=== PATIENT | female | born 1995 | race Caucasian/White ===

== ENCOUNTER 2020-10-29 16:01 | Inpatient (IN) | payer MEDICAID ==
[~2020-10-29] VITALS: Ht 162.6 cm; Wt 67.0 kg
[2020-10-29] MEDS ORDERED: LURA20TA PO (18:33)
[2020-10-29] MEDS ORDERED: GABA-1181 PO (18:33)
[2020-10-29] MEDS ORDERED: LISI-894 PO (18:33)
[2020-10-29] MEDS ORDERED: DULO30CA96 PO (18:33)
[2020-10-29] MEDS ORDERED: NALT50TA6 PO (18:33)
[2020-10-29] MEDS ORDERED: QUET200T PO (18:33)
[2020-10-29] MEDS ORDERED: OXCA300T57 PO (18:33)
[2020-10-29] MEDS ORDERED: CLON0.1T2 PO (18:34)
[2020-10-29] MEDS ORDERED: OLAN10TA6 PO (18:35)
[2020-10-29] MEDS ORDERED: MAGNESIUM HYDROXIDE SUSPENSION 30 ML UDCUP PO PRN (19:00)
[2020-10-29] MEDS ORDERED: HydrOXYzine PAMOATE 50 MG CAPSULE PO PRN (19:00)
[2020-10-29] MEDS ORDERED: MAG HYDROX/AL HYDROX/SIMETH ES 30 ML SUSPENSION UDCUP PO PRN (19:00)
[2020-10-29] MEDS ORDERED: ZOLPIDEM TARTRATE 10 MG TABLET PO PRN (19:00)
[2020-10-29] MEDS ORDERED: PROMETHAZINE HCL 25 MG TABLET PO PRN (19:00)
[2020-10-29] MEDS ORDERED: LOPERAMIDE HCL 2 MG CAPSULE PO PRN (19:00)
[2020-10-29] MEDS ORDERED: OLANZapine 5 MG RAPDIS TABLET PO PRN (19:00)
[2020-10-29] MEDS ORDERED: ACETAMINOPHEN 325 MG TABLET PO PRN (19:00)
[2020-10-29] MEDS ORDERED: GuaiFENesin/D-METHORPHAN [SUGAR-FREE] 200-20MG/10 ML SYRUP UDCUP PO PRN (19:00)
[2020-10-29] MEDS ORDERED: TUBERCULIN, PURIFIED PROTEIN DERIVATIVE 5 TU/0.1 ML SYRINGE ID ONE (19:00)
[2020-10-29] MEDS: THIAMINE 100 MG TABLET PO SCH (20:17)
[2020-10-29] MEDS ORDERED: PNEUMOCOCCAL VACCINE POLYVALENT 0.5 ML VIAL [PPSV23] IM ONE (20:45)
[2020-10-29] MEDS ORDERED: INFLUENZA VIRUS VACCINE QVS 2020-21 (6MO+)/PF 60 MCG/0.5 ML SYRINGE IM ONE (20:45)
[2020-10-29 20:54] VITALS: BP 129/79
[2020-10-29] MEDS: MELATONIN 5 MG TABLET PO SCH (20:58)
[2020-10-29] MEDS ORDERED: OLANZapine 5 MG RAPDIS TABLET PO SCH (21:00)
[2020-10-30 04:34] VITALS: BP 122/72
[2020-10-30 08:09] LABS: BASOPHILS % (AUTO) 0.6 % (0.0-2.0); EOSINOPHILS % (AUTO) 1.5 % (1.0-6.0); HEMATOCRIT 32.1 % (36-46); LYMPHOCYTES # (AUTO) 2.8 K/uL (1.0-4.8); LYMPHOCYTES % (AUTO) 39.8 % (22.0-44.0); MEAN CORPUSCULAR HEMOGLOBIN 30.3 pg (26.0-34.0); MEAN CORPUSCULAR HGB CONC 34.3 G/dL (31.0-37.0); MEAN CORPUSCULAR VOLUME 88 fL (80-100); MONOCYTES # (AUTO) 0.5 K/uL (0.1-1.0); MONOCYTES % (AUTO) 7.7 % (2.0-9.0); NEUTROPHILS # (AUTO) 3.5 K/uL (1.8-7.7); NEUTROPHILS % (AUTO) 50.4 % (40.0-70.0); PLATELET COUNT (AUTO) 324 K/uL (150-450); RED BLOOD CELL COUNT(AUTO) 3.63 MIL/uL (4.00-5.20); RED CELL DISTRIBUTION WIDTH 14.4 % (11.5-14.5)
[2020-10-30 08:19] VITALS: BP 130/75
[2020-10-30] MEDS: FOLIC ACID 1 MG TABLET PO SCH (08:44)
[2020-10-30] MEDS: THIAMINE 100 MG TABLET PO SCH ×2 (08:44→16:58)
[2020-10-30] MEDS: NALTREXONE HCL 50 MG TABLET PO SCH (08:44)
[2020-10-30] MEDS: OMEGA-3/DHA/EPA/FISH OIL 1,000 MG CAPSULE PO SCH (08:44)
[2020-10-30] MEDS: MULTIVITAMINS WITH MINERALS, THERAPEUTIC TABLET PO SCH (08:44)
[2020-10-30 08:49] LABS: ALANINE AMINOTRANSFERASE 21 U/L (12-78); ALBUMIN 3.4 g/dL (3.4-5.0); ALKALINE PHOSPHATASE 91 U/L (46-116); ANION GAP 9 mmol/L (8-16); ASPARTATE AMINOTRANSFERASE 18 U/L (15-37); BILIRUBIN,TOTAL 0.1 mg/dL (0.1-1.0); CALCIUM, TOTAL 8.9 mg/dL (8.8-10.5); CARBON DIOXIDE 27 mmol/L (22-29); CHLORIDE 107 mmol/L (98-107); CHOL/HDL RATIO 3.5 (3.9-5.7); CHOLESTEROL 156 mg/dL (131-200); CREATININE 0.77 mg/dL (0.60-1.30); FREE T4 (FREE THYROXINE) 1.05 ng/dL (0.76-1.46); GLOMERULAR FILTR. RATE CALC > 60 mL/min (>60); GLUCOSE,RANDOM 100 mg/dL (70-110); HCG,QUANTITATIVE < 1 mIU/mL (0-6); HDL CHOLESTEROL 44 mg/dL (40-60); LDL CHOL (CALC.) 94 mg/dL (0-130); POTASSIUM 4.1 mmol/L (3.5-5.1); SODIUM SERUM 143 mmol/L (136-145); THYROID STIMULATING HORMONE 1.51 uIU/mL (0.36-3.74); TOTAL PROTEIN, SERUM 7.4 g/dL (6.4-8.2); TRIGLYCERIDES 89 mg/dL (15-150); UREA NITROGEN, BLOOD 15 mg/dL (7-18)
[2020-10-30 08:57] LABS: HEMOGLOBIN A1C 5.5 % (3.8-5.6)
[2020-10-30] MEDS: BACITRACIN 28 GM OINTMENT TP SCH (09:00)
[2020-10-30] MEDS ORDERED: FLUoxetine HCL 20 MG CAPSULE PO SCH (09:00)
[2020-10-30] MEDS: NICOTINE 21 MG/24 HOUR PATCH TD SCH (10:15)
[2020-10-30] MEDS: LORazepam 2 MG TABLET PO PRN (15:06)
[2020-10-30 16:55] VITALS: BP 124/65
[2020-10-30] MEDS: OXcarbazepine 300 MG TABLET PO SCH (17:05)
[2020-10-30] MEDS: GABAPENTIN 300 MG CAPSULE PO SCH (17:05)
[2020-10-30] MEDS: CloNIDine HCL 0.1 MG TABLET PO SCH (20:23)
[2020-10-30] MEDS: OLANZapine 10 MG RAPDIS TABLET PO SCH (20:23)
[2020-10-30] MEDS: MELATONIN 5 MG TABLET PO SCH (20:23)
[2020-10-30] MEDS: DULoxetine HCL 30 MG CAPSULE PO SCH (20:24)
[2020-10-30] MEDS ORDERED: QUEtiapine FUMARATE 200 MG TABLET PO SCH (21:00)
[2020-10-31 00:20] VITALS: BP 116/69
[2020-10-31] MEDS ORDERED: LURASIDONE HCL 20 MG TABLET PO SCH (07:00)
[2020-10-31] MEDS: GABAPENTIN 300 MG CAPSULE PO SCH ×3 (08:57→17:03)
[2020-10-31] MEDS: OXcarbazepine 300 MG TABLET PO SCH ×2 (08:57→17:04)
[2020-10-31] MEDS: OMEGA-3/DHA/EPA/FISH OIL 1,000 MG CAPSULE PO SCH (08:57)
[2020-10-31] MEDS: FOLIC ACID 1 MG TABLET PO SCH (08:57)
[2020-10-31] MEDS: THIAMINE 100 MG TABLET PO SCH ×2 (08:57→17:03)
[2020-10-31] MEDS: MULTIVITAMINS WITH MINERALS, THERAPEUTIC TABLET PO SCH (08:57)
[2020-10-31] MEDS: NALTREXONE HCL 50 MG TABLET PO SCH (08:58)
[2020-10-31] MEDS: BACITRACIN 28 GM OINTMENT TP SCH (08:58)
[2020-10-31] MEDS ORDERED: OLANZapine 5 MG RAPDIS TABLET PO SCH (09:00)
[2020-10-31] MEDS: NICOTINE 21 MG/24 HOUR PATCH TD SCH (09:00)
[2020-10-31] MEDS: LORazepam 2 MG TABLET PO PRN (12:27)
[2020-10-31] MEDS ORDERED: GABA-1181 PO (13:48)
[2020-10-31] MEDS ORDERED: OXCA300T57 PO (13:48)
[2020-10-31] MEDS ORDERED: NALT50TA PO (13:48)
[2020-10-31] MEDS ORDERED: DULO30CA96 PO (13:48)
[2020-10-31] MEDS ORDERED: OMEG-135 PO (13:48)
[2020-10-31] MEDS ORDERED: OLAN10TA22 PO (13:48)
[2020-10-31] MEDS ORDERED: MELA5TAB3 PO (13:48)
[2020-10-31 16:10] VITALS: BP 123/77
[2020-10-31] MEDS: MELATONIN 5 MG TABLET PO SCH (20:01)
[2020-10-31] MEDS: CloNIDine HCL 0.1 MG TABLET PO SCH (20:03)
[2020-10-31] MEDS: OLANZapine 10 MG RAPDIS TABLET PO SCH (20:04)
[2020-10-31] MEDS: DULoxetine HCL 30 MG CAPSULE PO SCH (20:04)
[2020-11-01 01:27] VITALS: BP 114/76
[2020-11-01 08:19] VITALS: BP 118/78
[2020-11-01] MEDS: THIAMINE 100 MG TABLET PO SCH (08:35)
[2020-11-01] MEDS: MULTIVITAMINS WITH MINERALS, THERAPEUTIC TABLET PO SCH (08:35)
[2020-11-01] MEDS: OXcarbazepine 300 MG TABLET PO SCH (08:35)
[2020-11-01] MEDS: FOLIC ACID 1 MG TABLET PO SCH (08:35)
[2020-11-01] MEDS: NICOTINE 21 MG/24 HOUR PATCH TD SCH (08:35)
[2020-11-01] MEDS: GABAPENTIN 300 MG CAPSULE PO SCH (08:35)
[2020-11-01] MEDS: OMEGA-3/DHA/EPA/FISH OIL 1,000 MG CAPSULE PO SCH (08:35)
[2020-11-01] MEDS: NALTREXONE HCL 50 MG TABLET PO SCH (08:35)
[2020-11-01] MEDS: BACITRACIN 28 GM OINTMENT TP SCH (08:35)
[2020-11-01] MEDS ORDERED: CLON0.1T2 PO (08:38)
== END 2020-11-01 10:58 | disposition home or self-care (01) | DRG 750 ==
LOC: B3A 19:16
PROVIDERS: ADMIT Psychiatry & Neurology Psychiatry; ATTEND Psychiatry & Neurology Psychiatry
PROC: 3E02340 Introduction of Influenza Vaccine into Muscle, Percutaneous Approach (ICD-10-PCS; principal; 2020-10-29)
PROC: 3E0234Z Introduction of Serum, Toxoid and Vaccine into Muscle, Percutaneous Approach (ICD-10-PCS; 2020-10-29)
DX: F25.9 Schizoaffective disorder, unspecified (principal); I10 Essential (primary) hypertension; Z55.9 Problems related to education and literacy, unspecified; Z59.9 Problem related to housing and economic circumstances, unspecified; Z65.3 Problems related to other legal circumstances; Z23 Encounter for immunization
CPT/HCPCS: 83036; 84439; 84443; 86592; 90686; 90732; A9575